=== PATIENT | male | born 1980 | race African-American/Black ===

== ENCOUNTER 2023-12-31 20:35 | Emergency (ER) | payer MEDICAID, OTHER ==
[~2023-12-31] VITALS: Ht 175.3 cm; Wt 68.0 kg
[2023-12-31 20:53] VITALS: TEMP 98.1; O2SAT 99
[2023-12-31 22:20] VITALS: BP 116/50; PULSE 55; RESP 18; O2SAT 97
== END 2023-12-31 22:20 | disposition home or self-care (01) ==
LOC: ER 20:35
DX: T55.1X1A Toxic effect of detergents, accidental (unintentional), initial encounter (principal); X58.XXXA Exposure to other specified factors, initial encounter; Y93.89 Activity, other specified; Y92.89 Other specified places as the place of occurrence of the external cause; Y99.8 Other external cause status
CPT/HCPCS: 99281